=== PATIENT | female | born 1975 | race Caucasian/White ===

== ENCOUNTER → 2016-08-25 | Outpatient (CLI) | payer OTHER ==
--- NOTE | 2016-08-25 15:30 | REP ---
RIGHT FOURTH AND FIFTH DIGITS: Four views of the right fourth and fifth digits are performed. I see no evidence of acute fracture, dislocation or intrinsic bone disease. IMPRESSION: No evidence of acute fracture or dislocation. Signed by Tono Roberts MD 08/25/2016 05:27 P
== END ==
LOC: M WUC 14:33
PROVIDERS: ATTEND Physician Assistant
DX: S60.051A Contusion of right little finger without damage to nail, initial encounter (principal); S60.041A Contusion of right ring finger without damage to nail, initial encounter; X58.XXXA Exposure to other specified factors, initial encounter; Y92.89 Other specified places as the place of occurrence of the external cause; Y93.89 Activity, other specified; Y99.8 Other external cause status

== ENCOUNTER → 2017-07-16 | Outpatient (CLI) | payer OTHER ==
--- NOTE | 2017-07-16 14:25 | REP ---
Clinical: Right arm pain . Technique: AP, lateral, bilateral oblique views of the right elbow. Findings: No acute fracture or dislocation is appreciated. Joint spaces and surrounding soft tissues appear normal. Lateral view demonstrates normal positioning to the anterior and posterior fat pads without evidence for effusion/hemarthrosis. No subcutaneous emphysema or foreign body identified. Impression: Normal right elbow radiographs. Signed by Chang Kiran MD 07/16/2017 02:17 P
--- NOTE | 2017-07-16 14:26 | REP ---
Clinical: Pain. Technique: AP and lateral views of the right forearm. Findings: Elbow and wrist joints appear normal for age. No acute fracture or dislocation. No subcutaneous emphysema or radiodense foreign body. Impression: No acute fracture or dislocation. Age appropriate right forearm radiographs. Signed by Chang Kiran MD 07/16/2017 02:18 P
== END ==
LOC: M LRY 13:49
PROVIDERS: ATTEND Nurse Practitioner Family
DX: M79.601 Pain in right arm (principal)

== ENCOUNTER → 2019-11-27 | Outpatient (CLI) | payer OTHER | LOC: M LABSMTC 10:10 | PROVIDERS: ATTEND Family Medicine | DX: R52 Pain, unspecified (principal); R09.81 Nasal congestion; Z11.59 Encounter for screening for other viral diseases ==

== ENCOUNTER → 2020-07-17 | Outpatient (CLI) | payer SELFPAY | LOC: M LABSMTC 10:38 | PROVIDERS: ATTEND Pediatrics | DX: Z20.828 Contact with and (suspected) exposure to other viral communicable diseases (principal) ==

== ENCOUNTER → 2021-05-05 | Outpatient (REF) ==
[~2021-05-05] MED LIST: CETI-43 PO; CVS500CA5 PO; FERR325T18; FLUTISP; IBUP-1114 PO; ISIB1TAB; LISI-898; MAGN400C2 PO; METO1TAB32; OMEP-221
== END ==
LOC: M EMP 13:51
PROVIDERS: ATTEND Family Medicine
DX: Z20.828 Contact with and (suspected) exposure to other viral communicable diseases (principal)

== ENCOUNTER → 2021-05-07 | Outpatient (REF) | LOC: M LABSMTC 10:16 | PROVIDERS: ATTEND Family Medicine | DX: Z20.822 Contact with and (suspected) exposure to COVID-19 (principal) ==